=== PATIENT | female | born 1995 | race Caucasian/White ===

== ENCOUNTER 2022-02-18 18:22 | Inpatient (IN) | payer MEDICAID, OTHER ==
[~2022-02-18] VITALS: Ht 160 cm; Wt 73.7 kg
[2022-02-18] MEDS ORDERED: AMIT-92 PO (19:21)
[2022-02-18] MEDS ORDERED: LITH300T29 PO (19:21)
[2022-02-18] MEDS ORDERED: LORA-1000 PO (19:21)
[2022-02-18 20:10] LABS: BASOPHILS % (AUTO) 0.3 % (0.0-2.0); EOSINOPHILS % (AUTO) 0.9 % (1.0-6.0); HEMATOCRIT 44.1 % (36-46); HEMOGLOBIN 15.2 g/dL (12.0-16.0); LYMPHOCYTES # (AUTO) 2.8 K/uL (1.0-4.8); LYMPHOCYTES % (AUTO) 30.2 % (22.0-44.0); MEAN CORPUSCULAR HEMOGLOBIN 32.3 pg (26.0-34.0); MEAN CORPUSCULAR HGB CONC 34.6 G/dL (31.0-37.0); MEAN CORPUSCULAR VOLUME 93 fL (80-100); MONOCYTES # (AUTO) 0.7 K/uL (0.1-1.0); MONOCYTES % (AUTO) 7.4 % (2.0-9.0); NEUTROPHILS # (AUTO) 5.7 K/uL (1.8-7.7); NEUTROPHILS % (AUTO) 61.2 % (40.0-70.0); PLATELET COUNT (AUTO) 255 K/uL (150-450); RED BLOOD CELL COUNT(AUTO) 4.72 MIL/uL (4.00-5.20); RED CELL DISTRIBUTION WIDTH 13.1 % (11.5-14.5)
[2022-02-18 20:23] LABS: ANION GAP -1 mmol/L (8-16); CALCIUM, TOTAL 9.7 mg/dL (8.8-10.5); CARBON DIOXIDE 32 mmol/L (22-29); CHLORIDE 103 mmol/L (98-107); CREATININE 0.67 mg/dL (0.60-1.30); GLUCOSE,RANDOM 88 mg/dL (70-110); POTASSIUM 3.8 mmol/L (3.5-5.1); SODIUM SERUM 134 mmol/L (136-145); UREA NITROGEN, BLOOD 11 mg/dL (7-18)
[2022-02-18 20:25] LABS: GLOMERULAR FILTR. RATE CALC > 60 mL/min (>60)
[2022-02-18 20:29] LABS: ALANINE AMINOTRANSFERASE 23 U/L (12-78); ALKALINE PHOSPHATASE 113 U/L (46-116); ASPARTATE AMINOTRANSFERASE 17 U/L (15-37); BILIRUBIN,TOTAL 0.2 mg/dL (0.1-1.0); TOTAL PROTEIN, SERUM 8.1 g/dL (6.4-8.2)
[2022-02-18] MEDS ORDERED: OLANZapine 5 MG RAPDIS TABLET PO PRN (21:15)
[2022-02-18 21:40] LABS: COVID AG,FIA SOURCE NASAL SWAB
[2022-02-19] MEDS: ZOLPIDEM TARTRATE 10 MG TABLET PO PRN (02:47)
[2022-02-19 03:05] VITALS: BP 120/82
[2022-02-19 08:00] VITALS: BP 101/70
[2022-02-19] MEDS ORDERED: LITH300T4 PO (10:44)
[2022-02-19] MEDS ORDERED: ACETAMINOPHEN 325 MG TABLET PO PRN (11:00)
[2022-02-19] MEDS ORDERED: PROMETHAZINE HCL 25 MG TABLET PO PRN (11:00)
[2022-02-19] MEDS ORDERED: MAG HYDROX/AL HYDROX/SIMETH ES 30 ML SUSPENSION UDCUP PO PRN (11:00)
[2022-02-19] MEDS ORDERED: LOPERAMIDE HCL 2 MG CAPSULE PO PRN (11:00)
[2022-02-19] MEDS ORDERED: TUBERCULIN, PURIFIED PROTEIN DERIVATIVE 5 TU/0.1 ML SYRINGE ID ONE (11:00)
[2022-02-19] MEDS ORDERED: GuaiFENesin/D-METHORPHAN [SUGAR-FREE] 200-20MG/10 ML SYRUP UDCUP PO PRN (11:00)
[2022-02-19] MEDS ORDERED: HydrOXYzine PAMOATE 50 MG CAPSULE PO PRN (11:00)
[2022-02-19] MEDS ORDERED: MAGNESIUM HYDROXIDE SUSPENSION 30 ML UDCUP PO PRN (11:00)
[2022-02-19] MEDS: LORazepam 2 MG TABLET PO PRN (14:38)
[2022-02-19 16:00] VITALS: BP 104/74
[2022-02-19] MEDS: THIAMINE 100 MG TABLET PO SCH (16:24)
[2022-02-19] MEDS ORDERED: MIRTAZAPINE 15 MG TABLET PO SCH (21:00)
[2022-02-20] MEDS: ZOLPIDEM TARTRATE 10 MG TABLET PO PRN (00:39)
[2022-02-20 01:39] VITALS: BP 105/65
[2022-02-20] MEDS: THIAMINE 100 MG TABLET PO SCH ×2 (08:13→16:02)
[2022-02-20 08:25] LABS: LITHIUM < 0.20 mmol/L (0.60-1.20)
[2022-02-20 08:35] LABS: CHOL/HDL RATIO 3.7 (3.9-5.7); CHOLESTEROL 190 mg/dL (131-200); FREE T4 (FREE THYROXINE) 0.94 ng/dL (0.76-1.46); HDL CHOLESTEROL 51 mg/dL (40-60); LDL CHOL (CALC.) 115 mg/dL (0-130); THYROID STIMULATING HORMONE 1.68 uIU/mL (0.36-3.74); TRIGLYCERIDES 120 mg/dL (15-150)
[2022-02-20] MEDS ORDERED: MULTIVITAMINS WITH MINERALS, THERAPEUTIC TABLET PO SCH (09:00)
[2022-02-20] MEDS ORDERED: FLUoxetine HCL 20 MG CAPSULE PO SCH (09:00)
[2022-02-20] MEDS ORDERED: OMEGA-3/DHA/EPA/FISH OIL 1,000 MG CAPSULE PO SCH (09:00)
[2022-02-20] MEDS ORDERED: NALTREXONE HCL 50 MG TABLET PO SCH (09:00)
[2022-02-20] MEDS ORDERED: FOLIC ACID 1 MG TABLET PO SCH (09:00)
[2022-02-20] MEDS ORDERED: LITHIUM CARBONATE 300 MG CAPSULE PO SCH (09:00)
[2022-02-20] MEDS: LORazepam 2 MG TABLET PO PRN (16:04)
[2022-02-20] MEDS ORDERED: NALT50TA PO (16:51)
[2022-02-20] MEDS ORDERED: OMEG-135 PO (16:51)
[2022-02-20] MEDS ORDERED: LITH300C3 PO (16:51)
[2022-02-20] MEDS ORDERED: MELA5TAB40 PO (16:51)
[2022-02-20] MEDS ORDERED: PROZ20 PO (16:51)
== END 2022-02-20 17:45 | disposition home or self-care (01) | DRG 751 ==
LOC: EMS 18:27 → 3EI 02-19 01:31
PROVIDERS: ADMIT Psychiatry & Neurology Psychiatry; ATTEND Psychiatry & Neurology Psychiatry
DX: F33.2 Major depressive disorder, recurrent severe without psychotic features (principal); E87.1 Hypo-osmolality and hyponatremia; R45.851 Suicidal ideations; F42.9 Obsessive-compulsive disorder, unspecified; T43.225A Adverse effect of selective serotonin reuptake inhibitors, initial encounter; E11.9 Type 2 diabetes mellitus without complications; Z20.822 Contact with and (suspected) exposure to COVID-19; Z55.9 Problems related to education and literacy, unspecified; Z59.9 Problem related to housing and economic circumstances, unspecified; Z63.9 Problem related to primary support group, unspecified; Z65.3 Problems related to other legal circumstances; Z79.899 Other long term (current) drug therapy; Y92.89 Other specified places as the place of occurrence of the external cause
CPT/HCPCS: 80053; 80061; 80178; 80335; 83036; 84439; 84443; 84702; 85025; 86592; 99285; G0480